=== PATIENT | female | born 1950 | race Caucasian/White ===

== ENCOUNTER 2019-09-26 02:39 | Emergency (ER) | payer MEDICAID, OTHER ==
[~2019-09-26] VITALS: Ht 137.2 cm; Wt 59.0 kg
[2019-09-26] MEDS ORDERED: ONDANSETRON HCL 4 MG/2 ML VIAL IV ONE (03:15)
[2019-09-26 03:46] LABS: Basophils # (auto) 0 10 ^3/uL (0-0.2); Basophils % (auto) 0.2 % (0.0-2.0); Eosinophils # (auto) 0 10 ^3/uL (0-0.8); Eosinophils % (auto) 0.1 % (0.0-7.0); Hematocrit 35.1 % (36.0-46.0); Hemoglobin 11.3 g/dL (12.2-16.2); Lymphocytes # (auto) 2.3 10 ^3/uL (0.4-5.4); Lymphocytes % (auto) 20.1 % (10.0-50.0); Mean Corpuscular Hemoglobin 29.1 pg (28.0-32.0); Mean Corpuscular Hgb Conc. 32.1 g/dL (32.0-36.0); Mean Corpuscular Volume 90.5 fL (80.0-100.0); Monocytes # (auto) 0.9 10 ^3/uL (0-1.3); Monocytes % (auto) 7.8 % (0.0-12.0); Neutrophils # (auto) 8.4 10 ^3/uL (1.6-8.6); Neutrophils % (auto) 71.8 % (37.0-80.0); Platelet Count (auto) 309 10^3/uL (140-450); Red Blood Cells 3.88 10^6/uL (4.0-5.20); Red Cell Distribution Width 15.2 % (11.8-14.3); White Blood Cell 11.7 10^3/uL (4.4-10.8)
[2019-09-26 04:01] LABS: Chloride 107 mmol/L (98-107); Potassium 4.3 mmol/L (3.5-5.1); Sodium 141 mmol/L (136-145)
[2019-09-26 04:02] LABS: INR 1.18 (0.9-1.15); Partial Thromboplastin Time 24.2 sec (23.64-32.05)
[2019-09-26 04:10] LABS: Alanine Aminotransferase 55 U/L (13-56); Albumin 2.9 g/dL (3.4-5.0); Alkaline Phosphatase 176 U/L (45-117); Anion Gap 12 (5-15); Aspartate Aminotransferase 49 U/L (15-37); BUN/Creatinine Ratio 19.4; Bilirubin, Total 0.3 mg/dL (0.2-1.0); Blood Urea Nitrogen 21 mg/dL (7-18); Calcium 8.6 mg/dL (8.5-10.1); Carbon Dioxide 22 mmol/L (21-32); GFR African American 65 mL/min; GFR Non-African American 54 mL/min; Glucose 220 mg/dL (74-106); Magnesium 2.1 mg/dL (1.6-2.6); Total Protein 6.4 g/dL (6.4-8.2)
[2019-09-26 05:00] VITALS: BP 98/44
== END 2019-09-26 05:48 | disposition home or self-care (01) ==
LOC: ER 02:41
DX: R04.0 Epistaxis (principal); I25.2 Old myocardial infarction
CPT/HCPCS: 30901; 36415; 70450; 71045; 80053; 83735; 83880; 84484; 85025; 85610; 85730; 86850; 86900; 86901; 93005; 99285; J2405

== ENCOUNTER 2019-09-28 12:50 | Emergency (ER) | payer OTHER ==
[~2019-09-28] VITALS: Ht 137.2 cm; Wt 59.0 kg
[2019-09-28 13:04] VITALS: BP 114/62
== END 2019-09-28 15:39 | disposition home or self-care (01) ==
LOC: ER 12:50
DX: Z48.01 Encounter for change or removal of surgical wound dressing (principal); I25.2 Old myocardial infarction; Z86.73 Personal history of transient ischemic attack (TIA), and cerebral infarction without residual deficits